=== PATIENT | female | born 1965 | race Caucasian/White ===

== ENCOUNTER 2019-05-29 12:33 | Outpatient (REF) | payer BC, SELFPAY ==
[2019-05-29 21:59] LABS: HCT 39.1 % (36.0-46.0); HGB 12.9 g/dL (12.0-15.5); Mean Corpuscular Hemoglobin 31.9 pg (27.0-33.0); Mean Corpuscular Volume 96.5 fL (80-95); Platelet Count 306 x1000/uL (130-400); RBC 4.05 m/cumm (4.00-5.20); RBC Distribution Width 13.1 % (11.7-14.6); White Blood Cell Count 7.72 k/cumm (4.4-10.8)
[2019-05-29 22:28] LABS: ALT 31 U/L (14-59); AST 18 U/L (15-37); Albumin 4.1 g/dL (3.4-5.0); Alkaline Phosphatase 83 U/L (46-116); Anion Gap 10.3 mmol/L (3-11); BUN 19 mg/dL (7-18); Bilirubin, Total 0.5 mg/dL (0.2-1.0); CO2 27.7 mmol/L (21.0-32.0); CREATININE 0.52 mg/dL (0.55-1.02); Calcium 9.2 mg/dL (8.5-10.1); Calculated LDL 137 mg/dL (<100); Chloride 103 mmol/L (98-107); Cholesterol 223 mg/dL (<200); Glucose 86 mg/dL (74-106); HDL Cholesterol 54 mg/dL (40-60); Hemoglobin A1C 5.7 % (3.8-5.6); Potassium 4.3 mmol/L (3.5-5.1); Sodium 141 mmol/L (136-145); TSH 2.09 uIU/mL (0.36-3.74); Total Protein 6.9 g/dL (6.4-8.2); Triglyceride 164 mg/dL (<150)
== END 2019-05-29 12:53 ==
LOC: NCHCN 12:33
PROVIDERS: Visit Provider Nurse Practitioner Family
DX: Z00.00 Encounter for general adult medical examination without abnormal findings (principal); I83.90 Asymptomatic varicose veins of unspecified lower extremity; F17.200 Nicotine dependence, unspecified, uncomplicated; K51.90 Ulcerative colitis, unspecified, without complications; Z82.49 Family history of ischemic heart disease and other diseases of the circulatory system; Z13.1 Encounter for screening for diabetes mellitus; E03.9 Hypothyroidism, unspecified
CPT/HCPCS: 80053; 80061; 85027; 83036; 84443

== ENCOUNTER 2022-12-28 19:20 | Outpatient (REF) | payer BC, SELFPAY ==
[2022-12-27 21:11] LABS: HCT 37.2 % (36.0-46.0); HGB 11.9 g/dL (11.2-15.7); MCH 30.3 pg (27.0-33.0); MCV 95 fL (80-95); MPV 9.7 fL (8.0-11.0); Platelet Count 344 10^3/uL (130-400); RBC 3.93 10^6/uL (3.93-5.22); RDW 12.2 % (11.7-14.6); RDW-SD 42.9 fL; WBC 7.88 10^3/uL (4.4-10.8)
[2022-12-27 21:27] LABS: Hemoglobin A1C 5.4 % (<5.7)
[2022-12-27 21:30] LABS: ALT 36 U/L (14-59); AST 26 U/L (15-37); Albumin 3.8 g/dL (3.4-5.0); Alkaline Phosphatase 87 U/L (46-116); Anion Gap 7.8 mmol/L (3-11); BUN 12 mg/dL (7-18); Bilirubin, Total 0.2 mg/dL (0.2-1.0); CO2 27.2 mmol/L (21.0-32.0); CREATININE 0.7 mg/dL (0.55-1.02); Calcium 9.1 mg/dL (8.5-10.1); Calculated LDL 131 mg/dL (<100); Chloride 106 mmol/L (98-107); Cholesterol 206 mg/dL (<200); Estimated GFR 100.19 (mL/min/1.73m2); Glucose 99 mg/dL (74-106); HDL Cholesterol 48 mg/dL (40-60); Potassium 3.7 mmol/L (3.5-5.1); Sodium 141 mmol/L (136-145); TSH 2.54 uIU/mL (0.36-3.74); Total Protein 7.2 g/dL (6.4-8.2); Triglyceride 137 mg/dL (<150)
== END 2022-12-28 19:21 | disposition home or self-care (01) ==
LOC: NCHCN 19:20
PROVIDERS: Visit Provider Nurse Practitioner Family
DX: R39.9 Unspecified symptoms and signs involving the genitourinary system (principal); R73.03 Prediabetes; F41.1 Generalized anxiety disorder; I83.90 Asymptomatic varicose veins of unspecified lower extremity; N95.2 Postmenopausal atrophic vaginitis; W57.XXXA Bitten or stung by nonvenomous insect and other nonvenomous arthropods, initial encounter; T14.8XXA Other injury of unspecified body region, initial encounter
CPT/HCPCS: 80053; 80061; 85027; 83036; 84443